=== PATIENT | male | born 1960 | race Caucasian/White ===

== ENCOUNTER 2023-08-23 06:28 | Day surgery (SDC) | payer OTHER, SELFPAY ==
[2023-08-22 09:30] VITALS: BMI 28.6
[2023-08-22 10:28] LABS: Hematocrit 47.1 % (39.0-52.0); Hemoglobin 15.9 g/dL (13.0-18.0); Mean Corp Hgb Conc. 33.8 g/dL (33.0-37.0); Mean Corpuscular Hgb 30.5 pg (27.0-31.0); Mean Corpuscular Volume 90.2 fL (80.0-94.0); Mean Platelet Volume 10.9 fL (7.4-10.4); Platelet Count 206 10^3/uL (130-400); Red Blood Cell Count 5.22 10^6/uL (4.70-6.10); Red Cell Dist. Width 12.1 % (11.5-14.5); White Blood Cell Count 5.1 10^3/uL (4.8-10.8)
[2023-08-22 10:56] LABS: Blood Urea Nitrogen 22 mg/dl (9-20); Calcium 9.5 mg/dl (8.4-10.2); Carbon Dioxide 23 mmol/L (22-30); Chloride 107 mmol/L (98-107); Estimated Creatinine Clearance 68 ml/min; Glucose 91 mg/dl (70-99); Potassium 4.5 mmol/L (3.5-5.1); Sodium 139 mmol/L (135-145); eGFR > 60.00
[2023-08-22 11:03] LABS: INR 1.04; PT 13.4 Sec (11.4-14.6)
[2023-08-22 11:04] LABS: APTT 27.5 Sec (23.4-35.0)
[2023-08-23 13:35] VITALS: BP 157/85
[2023-08-23] MEDS: NORMOSOL-R 1000 IV (13:42)
[2023-08-23 13:44] VITALS: BMI 28.6
[2023-08-23] MEDS: NEOMYCIN ENEMA 1 BOTTLE RECTAL (13:54)
[2023-08-23 16:11] VITALS: BP 125/72
[2023-08-23 16:15] VITALS: BP 128/77
[2023-08-23 16:30] VITALS: BP 132/79
[2023-08-23 16:45] VITALS: BP 120/77
== END 2023-08-23 17:00 | disposition home or self-care (01) ==
LOC: SDS 06:28
PROVIDERS: ATTENDING PHYSICIAN Specialist; FAMILY PHYSICIAN Family Medicine
DX: N41.1 Chronic prostatitis (principal); N40.0 Benign prostatic hyperplasia without lower urinary tract symptoms; R97.20 Elevated prostate specific antigen [PSA]; Z80.42 Family history of malignant neoplasm of prostate
CPT/HCPCS: 55700; 36415; 76998; 80048; 85027; 85610; 85730; 88305; 88344; 93005

== ENCOUNTER 2023-08-26 02:14 | Inpatient (IN) | payer OTHER, SELFPAY ==
[2023-08-25 22:02] VITALS: BP 149/98
[2023-08-25 22:37] VITALS: BP 151/87
[2023-08-25 22:37] LABS: % Basophils 0.3 % (0-2); % Eosinophils 0.6 % (0-6); % Immature Granulocytes 0.6 % (0-0.5); % Neutrophils 81.5 % (42.2-75.2); Absolute Eosinophils 0.1 10^3/uL (0-0.7); Absolute Immature Granulocytes 0.1 10^3/uL (0-0.05); Absolute Lymphocytes 1.5 10^3/uL (1.2-3.4); Absolute Monocytes 0.6 10^3/uL (0.1-0.6); Absolute Neutrophils 10.3 10^3/uL (1.4-6.5); Hematocrit 45.4 % (39.0-52.0); Hemoglobin 16.2 g/dL (13.0-18.0); Mean Corp Hgb Conc. 35.7 g/dL (33.0-37.0); Mean Corpuscular Volume 86.8 fL (80.0-94.0); Mean Platelet Volume 9.9 fL (7.4-10.4); Nucleated Red Blood Cells % 0 % (-); Platelet Count 191 10^3/uL (130-400); Red Blood Cell Count 5.23 10^6/uL (4.70-6.10); White Blood Cell Count 12.7 10^3/uL (4.8-10.8)
[2023-08-25 22:39] VITALS: BMI 29.8
[2023-08-25] MEDS: TYLENOL 1000 MG PO (22:42)
[2023-08-25 22:47] LABS: Lactic Acid 1.6 mmol/L (0.7-2.0)
[2023-08-25 22:51] LABS: ALT (SGPT) 25 U/L (0-50); AST (SGOT) 28 U/L (17-59); Albumin 4.7 g/dl (3.5-5.0); Alkaline Phosphatase 75 U/L (38-126); Blood Urea Nitrogen 27 mg/dl (9-20); Calcium 10.1 mg/dl (8.4-10.2); Carbon Dioxide 23 mmol/L (22-30); Chloride 105 mmol/L (98-107); Estimated Creatinine Clearance 63 ml/min; Glucose 100 mg/dl (70-99); Potassium 4.4 mmol/L (3.5-5.1); Sodium 138 mmol/L (135-145); Total Bilirubin 0.8 mg/dl (0.2-1.3); eGFR > 60.00
[2023-08-25 23:00] VITALS: BP 122/69
[2023-08-25] MEDS: MOTRIN 400 MG PO (23:37)
[2023-08-25] MEDS: NSS 1000 IV (23:38)
[2023-08-25] MEDS: ROCEPHIN 1000 MG IV (23:38)
[2023-08-26] VITALS (8 sets, daily range): BP systolic 93–129; BP diastolic 56–72; BMI 28.9
--- NOTE | 2023-08-26 00:31 | ED.GENMED ---
History of Present Illness
General
Chief Complaint: Fever
Source: patient
Exam Limitations: none
Time Seen by Provider: 08/25/23 23:25
Nursing documentation reviewed up to this point in time: agreed with
History of Present Illness
History of Present Illness:
Patient status post prostate biopsy 2 days ago secondary to elevated PSA level, presents to ED secondary to sudden onset of fever, chills, and vomiting, after he returned home from work around 8 PM. Patient spoke with on-call urologist who
recommended patient come to ED for an evaluation. Denies difficulty urination. Denies back pain. Denies diarrhea. Denies coughing. Denies sore throat. Denies headache.
Review of Systems
Review of Systems
Allergies reviewed?: Yes
All Other Systems: ROS reviewed and negative except as documented in HPI and ROS
Constitutional: Reports fever and chills
Respiratory: Reports no symptoms
ABD/GI: Reports nausea and vomiting; Denies abdominal pain or diarrhea
: Reports no symptoms
Musculoskeletal: Reports no symptoms
Skin: Reports no symptoms
Neurological: Reports no symptoms
Phy Exam
Physical Exam
Physical Exam:
Physical Exam
General: mild distress, not acutely ill. febrile. tachycardic
Head: nc/at. eomi
Neck: supple. no meningeal signs.
Heart: tachycardic, no murmur. equal radial pulses.
Lungs: no acute respiratory distress. clear bilaterally
Abdomen: normal bowel sounds. not tender.
Neuro: alert and oriented. no focal neurological deficits
Skin: no rash
Psychiatric: well kept. interactive and cooperative
Extremities: no edema. no calf tenderness.
Course
Orders/Labs/Results
Orders:
Orders
08/25/23 22:03
Electrocardiogram (*1) Urgent
Reason for Study: Tachycardia
08/25/23 22:04
EKG- Treatment ONCE
08/25/23 22:19
Urinalysis Reflex To Culture Urgent
Date Specimen was Collected: 08/25/23
Time Specimen was Collected: 22:19
08/25/23 22:27
Complete Blood Count/With Diff Urgent
Comprehensive Metabolic Panel Urgent
Lactic Acid Urgent
Blood Culture Urgent
TOYA Source: Blood/Venous
Specimen Description:
08/25/23 22:42
Acetaminophen [Tylenol] 1,000 mg .ROUTE .STK-MED ONE
Acetaminophen [Tylenol] 1,000 mg PO NOW STA
08/25/23 23:33
0.9% Sodium Chloride 1000 ml [Nss] 1,000 ml IV BOLUS
CefTRIAXone [Rocephin] 1,000 mg IV NOW STA
Ibuprofen [Motrin] 400 mg PO NOW STA
08/26/23 00:40
Urine Microscopic Reflex Cult Urgent
Urine Culture Urgent
TOYA Source: U
Specimen Description:
Date Specimen was Collected: 08/25/23
Time Specimen was Collected: 22:19
08/26/23 01:27
0.9% Sodium Chloride 500 ml [Nss] 500 ml IV BOLUS
08/26/23 02:01
Admit/Transfer Patient As Directed
Co-Sign Provider:
Level of Care: Inpatient admission
Assign to:: Telemetry
Physician / Group: htay
Diagnosis: sepsis due to UTI
Reason for Telemetry: Other
Other Reason for Telemetry: S/P prostae Biopsy 3 days ago
Date to Stop Telemetry: 08/28/23
Time to Stop Telemetry: 11:00
Reason for Hospitalization: sepsis due to UTI
S/P prostae Biopsy 3 days ago
Expected length of stay greater than two midnights?: Yes
ELOS- Estimated Length of Stay in days: 3
I certify the patient meets the requirements for IP care: Yes
08/26/23 02:04
Code Status As Directed
Resuscitation Status: Full Code
08/28/23 11:00
DC Protocol for Telemetry ONCE
Abnormal Lab Results
08/25/23 08/26/23
22:27 00:40
WBC 12.7 H 10^3/uL
(4.8-10.8)
Abs Immat Gran (auto) 0.1 H 10^3/uL
(0-0.05)
Absolute Neuts (auto) 10.3 H 10^3/uL
(1.4-6.5)
Immature Gran % 0.6 H %
(0-0.5)
Neutrophils % 81.5 H %
(42.2-75.2)
Lymphocytes % 12.0 L %
(20.5-51.1)
BUN 27 H mg/dl
(9-20)
Glucose 100 H mg/dl
(70-99)
Ur Occult Blood Reflex 2+ A
(Negative)
Urine Nitrite (Reflex) Positive A
(Negative)
Leukocyte Esterase Rfl 1+ A
(Negative)
Urine RBC 7-10 A /HPF
(0-2)
Urine WBC (Reflex) 26-30 A /HPF
(0-5)
Urine Bacteria (Reflex) Many A
(Negative)
08/25/23 22:27
08/25/23 22:27
Vital Signs
Initial and Last Documented VS:
Initial Vital Signs
Temp Pulse Resp Pulse Ox
99.5 F 129 18 98
08/25/23 22:01 08/25/23 22:01 08/25/23 22:01 08/25/23 22:01
Last Documented Vital Signs
Temp Pulse Resp BP Pulse Ox
99.8 F 101 18 116/62 96
08/26/23 00:47 08/26/23 01:45 08/26/23 01:13 08/26/23 01:00 08/26/23 01:45
MDM/Problems Addressed
MDM/Problems Addressed:
History and exam concerning for sepsis, likely secondary to UTI, with clinical concern for potential development of bacteremia. Rocephin along with IV fluids given. Patient remains normotensive with improvement in heart rate.
Urine culture and blood culture pending.
(urology) notified via [facility]
*Critical Care Note
Total Time (30-74mins, 75-104mins- exclusive of procedures): Not Applicable
ED Attending Note
-
Portions of this chart may have been created with voice recognition software.� Occasional wrong word or��sound alike� substitutions may have occurred due to the inherent limitations of voice recognition software.
Discharge Plan
Departure
Patient Disposition: Admit
Date of Disposition: 08/26/23
Time of Disposition: 01:41
Admit to: Telemetry
Presentation/result/management discussed w/ accepting MD/DO: Hospitalist
Discharge Problem:
Sepsis, Acute UTI
Interventions
Interventions:
*Risk Screen - Suicide Last Done: 08/26/23 00:58
*Neglect/Abuse Screening Last Done: 08/26/23 00:58
ED- Fall Risk Assessment Last Done: 08/25/23 23:08
*ED COVID-19 Vaccine History Last Done: 08/25/23 22:02
ED- Neurological Assessment Last Done: 08/25/23 23:08
ED-Skin Assessment Last Done: 08/25/23 23:08
[2023-08-26 00:47] LABS: Urine Albumin Negative (Neg - Trace); Urine Bilirubin Negative (Negative); Urine Character Slightly Cloudy (Clear); Urine Color Yellow; Urine Glucose Negative (Negative); Urine Ketone Negative (Negative); Urine Leukocyte 1+ (Negative); Urine Nitrite Positive (Negative); Urine Occult Blood 2+ (Negative); Urine Urobilinogen Negative (Neg - 1+)
[2023-08-26 01:27] LABS: Urine Calcium Oxalate Crystals Seen; Urine Squamous Cell 0-2 /LPF (Few)
[2023-08-26 01:28] LABS: Urine Bacteria Many (Negative); Urine White Cell 26-30 /HPF (0-5)
[2023-08-26] MEDS: NSS 500 IV (01:38)
--- NOTE | 2023-08-26 01:54 | HPS.HSE ---
Family Physician
-
Family Physician: Marty Bhakta
Chief Complaint
-
fever and chills
History of Present Illness
63M HX HLD s/p prostate biopsy 3 days ago for elevated PSA seen at ER for evalaution of fever, chills, and vomiting,
Acute fever with chills sent in by Urologist to ER
s/p prostate biopsy 3 days ago for elevated PSA
Associated with emesis
Denies difficulty urination
Denied hematuria
Denied abdominal pain
Denies back pain.
At ER
T max 101.1 Tachycardic, marginally hypotensive
Medical History
Past Medical History
Past Medical History: Reports GERD, Hypercholesterolemia and Other (erectile dysfunction )
Past Surgical History: Reports None
Social History
Tobacco: Non-smoker
Alcohol: Occasional
Drug: None
Family History
Family History: Not pertinent
Allergies / Home Medications
Allergies reflects when Allergies were last updated in [facility].
Home Medications with original date entered in [facility]
Allergy/Medication List:
Allergies
Allergy/AdvReac Type Severity Reaction Status Date / Time
No Known Allergies Allergy Verified 08/23/23 13:40
Home Medications
atorvastatin 40 mg tablet 40 mg PO DAILY 08/18/23
esomeprazole magnesium 20 mg capsule,delayed release (Nexium) 20 mg PO PRN PRN gastric reflux 08/18/23
tadalafil 5 mg tablet (Cialis) 5 mg PO DAILY 08/18/23
tirzepatide 2.5 mg/0.5 mL subcutaneous pen injector (Mounjaro) 2.5 mg SC QWEEK 08/18/23
zolpidem 10 mg tablet (Ambien) 10 mg PO HS PRN sleep 08/25/23
Review of Systems
-
Constitutional: Reports Fever (T max 101) and Chills
EENT: Reports No Symptoms
Respiratory: Reports No Symptoms
Cardiac: Reports No Symptoms
Abdomen/GI: Reports No Symptoms
: Reports No Symptoms
Musculoskeletal: Reports No Symptoms
Skin: Reports No Symptoms
Neurological: Reports No Symptoms
Endocrine: Reports No Symptoms
Hematologic/Lymphatic: Reports No Symptoms
Psych: Reports No Symptoms
Physical Exam
Vital Signs
Vital Signs
Temp Pulse Resp BP Pulse Ox
99.8 F 108 18 116/62 96
08/26/23 00:47 08/26/23 01:15 08/26/23 01:13 08/26/23 01:00 08/26/23 01:15
Physical Exam
General: Well Developed, Well Nourished, No Apparent Distress, Conversant and Fever (T max 101.1)
HEENT: NormoCephalic, Moist mucous membranes and Atraumatic
Respiratory: Clear
Cardiac: S1/S2 and Regular Rhythm; No Murmur or Rub
GI: Soft, Non Tender, Non Distended and Normal Bowel Sounds; No Organomegaly
Rectal: Deferred by Provider
Genito-urinary: Deferred by me
Musculoskeletal: No Clubbing, No Cyanosis and No Edema
Skin: No Rash
Neuro: AO x 3 and Nonfocal/grossly intact
Psych: Calm
Laboratory Results
-
08/25/23 22:27
08/25/23 22:27
Laboratory Results
Lactic Acid 1.6 mmol/L (0.7-2.0) 08/25/23 22:27
Total Bilirubin 0.8 mg/dl (0.2-1.3) 08/25/23 22:27
AST 28 U/L (17-59) 08/25/23 22:27
ALT 25 U/L (0-50) 08/25/23 22:27
Alkaline Phosphatase 75 U/L (38-126) 08/25/23 22:27
Data Reviewed
-
Lab Data: Labs Reviewed by me
Old Records: Reviewed
Impression/Plan
-
Reviewed VS: T max 101.1 Tc 99.8 Tachycardic 108 marginally hypotnsive 116/62 RR 18 POx 96
Data
WCC 12.7
BUN 27
Cr 1.2
eGFR > 60
LA 1.6
UA: POS Nitries, WCC 26-30, RBC 7-10, 1 + LE
UCx sent
BCx sent
EKG report
SINUS TACHYCARDIA
RIGHTWARD AXIS
BORDERLINE ECG
WHEN COMPARED WITH ECG OF 22-AUG-2023 09:27,
VENT. RATE HAS INCREASED BY 65 BPM
NONSPECIFIC T WAVE ABNORMALITY NOW EVIDENT IN INFERIOR LEADS
NO PRIOR hospitalist admission:
ASSESSMENT & PLAN
Sepsis due to UTI
S/P2 L NS at ER : patient margareth improved
S/P prostate biopsy 3 days ago
- f/u UCx and BCx
- cont. empiric IV CFTX
- cont. IV NS
- Uro consulted
HLD
- on Atorvastatin
HX ED on Cialis daily
DVT Px: SCD
Code: Full
IP TLM
--- NOTE | 2023-08-26 03:15 | PTCARENOTE ---
Received pt from ED. Patient Transferred from stretcher to standing scale without assistance. Pt AAO*3 with no weakness noted. VSS. Pt and Spouse oriented to room. Call gross within reach. All orders reviewed and acknowledged. Will continue to
monitor.
[2023-08-26] MEDS: NSS 1000 IV (03:31)
[2023-08-26 05:57] LABS: Hematocrit 37.4 % (39.0-52.0); Hemoglobin 13.1 g/dL (13.0-18.0); Mean Corpuscular Hgb 30.7 pg (27.0-31.0); Mean Corpuscular Volume 87.6 fL (80.0-94.0); Mean Platelet Volume 10.5 fL (7.4-10.4); Platelet Count 159 10^3/uL (130-400); Red Blood Cell Count 4.27 10^6/uL (4.70-6.10); Red Cell Dist. Width 12.2 % (11.5-14.5); White Blood Cell Count 12.3 10^3/uL (4.8-10.8)
[2023-08-26] MEDS: LIPITOR 40 MG PO (09:15)
[2023-08-26] MEDS: ZOSYN 50 IV ×3 (09:26→20:57)
--- NOTE | 2023-08-26 13:03 | W.PN.UPDATE ---
Update Note
Progress Note Update
This note serves as supplemental to history and physical dated 08/25
-switched to zosyn
-repeat blood cultures, urine cultures
-monitor fever curve, wbc
--- NOTE | 2023-08-26 13:12 | W.PN.URO.CBU ---
Today's Communication / Plan
-
per hospitalist but no changes as of now
Assessment / Plan
-
sepsis await targeted iv abs but improving in now zosyn ans previously rocephin and iv fluids if failing eeeds ct scan to t/out prostae abcess but no clinical eveidence of that now
Diagnosis
-
Date of Service: August 26, 2023
-
Patient Diagnosis:urosepsis s/p transrectalu/s prostae despite periopetove levaquin and gentamicim]=n and neomycin enema now fever 102 e coli bacteremia 48 hpours post op
Post Op Day:
Subjective
-
feeling better now fay-tigue chills yesterday
Objective
-
Vital Signs
Temp Pulse Resp BP Pulse Ox
98.1 F 71 16 129/72 97
08/26/23 11:03 08/26/23 11:03 08/26/23 11:03 08/26/23 11:03 08/26/23 11:03
Intake and Output
08/25/23 08/26/23 08/27/23
06:59 06:59 06:59
Other:
Number of approximated LARGE 1
amounts of urine
Laboratory Results
08/26/23 05:01
08/25/23 22:27
Review of Systems
-
Constitutional: Fever, Fatigue, Night Sweats and Chills
: No Symptoms
Physical Exam
-
General - well developed, well nourished, no acute distress non toxic
Chest - clear bilaterally
Abdomen - soft, non-tender, positive bowel sounds, no CVAT, no incisional pain or distention
Genitalia - normal
Rectal - normal
Skin - warm & dry with no rash
Neuro - AOx3, no motor deficits
Extremities - no clubbing, no cyanosis, no edema
Incision - clean, dry
Dressing - clean, dry, intact
Care Review
Data Reviewed
Discussed with: Hospitalist
--- NOTE | 2023-08-26 15:38 | CM ---
Alert awake oriented patient who lives with his SO Mary Alice who lives in a 2 story home with 1 step to enter and 10 steps to bed and bathroom.Called admission to add Mary Alice [phone] to contacts as per pt request. He is independent in driving and
in all activities of daily living.He was offered VN he declined need.
No VN hx / No SNF history
Pharmacy [facility]
PCP DR Bhakta
PLAN Home Declined VN
[2023-08-26] MEDS: LR 1000 IV (15:53)
[2023-08-26] MEDS: TYLENOL 650 MG PO ×2 (16:07→20:56)
[2023-08-26] MEDS: MOTRIN 400 MG PO (21:50)
[2023-08-27] MEDS: TYLENOL 650 MG PO ×4 (01:11→20:16)
[2023-08-27] MEDS: LR 1000 IV ×3 (01:11→21:22)
[2023-08-27] MEDS: ZOSYN 50 IV ×4 (03:09→21:22)
[2023-08-27 03:30] VITALS: BP 113/63
[2023-08-27 06:23] LABS: Hematocrit 34.7 % (39.0-52.0); Hemoglobin 12.3 g/dL (13.0-18.0); Mean Corp Hgb Conc. 35.4 g/dL (33.0-37.0); Mean Corpuscular Hgb 30.9 pg (27.0-31.0); Mean Corpuscular Volume 87.2 fL (80.0-94.0); Mean Platelet Volume 10.3 fL (7.4-10.4); Platelet Count 123 10^3/uL (130-400); Red Blood Cell Count 3.98 10^6/uL (4.70-6.10); Red Cell Dist. Width 12.2 % (11.5-14.5); White Blood Cell Count 6.7 10^3/uL (4.8-10.8)
[2023-08-27 06:45] LABS: ALT (SGPT) 17 U/L (0-50); AST (SGOT) 18 U/L (17-59); Albumin 2.7 g/dl (3.5-5.0); Alkaline Phosphatase 55 U/L (38-126); Blood Urea Nitrogen 16 mg/dl (9-20); Calcium 8.6 mg/dl (8.4-10.2); Carbon Dioxide 22 mmol/L (22-30); Chloride 111 mmol/L (98-107); Estimated Creatinine Clearance 83 ml/min; Glucose 102 mg/dl (70-99); Potassium 3.6 mmol/L (3.5-5.1); Sodium 137 mmol/L (135-145); Total Bilirubin 0.8 mg/dl (0.2-1.3); Total Protein 4.7 g/dl (6.3-8.2); eGFR > 60.00
[2023-08-27 07:30] VITALS: BP 101/60
[2023-08-27 08:14] VITALS: BMI 28.9
[2023-08-27] MEDS: LIPITOR 40 MG PO (09:08)
--- NOTE | 2023-08-27 09:29 | W.PN.URO.CBU ---
Today's Communication / Plan
-
Continue antibiotics
Assessment / Plan
-
63M with post prostate biopsy sepsis
E coli bacteremia
- Sepsis responding well to abx - No other intervention needed at this time
- Trend fever curve - last fever in PM 08/25
- Continue Zosyn pending final cultures
Diagnosis
-
Date of Service: August 27, 2023
-
Patient Diagnosis:
Post Op Day:
Patient Diagnosis:urosepsis s/p transrectal u/s prostate biopsy
Post Op Day:
Subjective
-
feeling better today
mild chills last night
Objective
-
Vital Signs
Temp Pulse Resp BP Pulse Ox
97.8 F 54 18 101/60 97
08/27/23 07:30 08/27/23 07:30 08/27/23 07:30 08/27/23 07:30 08/27/23 07:30
Intake and Output
08/26/23 08/27/23 08/28/23
06:59 06:59 06:59
Intake Total 1480 / 1480
Balance 1480 / 1480
Intake:
Oral fluids 480 / 480
IV fluids (Total) 950 / 950
IV piggybacks 50 / 50
Other:
Number of approximated MODERATE 3
amounts of urine
Number of approximated LARGE 1
amounts of urine
Laboratory Results
08/27/23 05:55
08/27/23 05:55
Physical Exam
-
General - well developed, well nourished, no acute distress
Chest - clear
Abdomen - soft, non-tender
Skin - warm & dry with no rash
Neuro - AOx3
[2023-08-27 11:05] VITALS: BP 118/67
--- NOTE | 2023-08-27 14:06 | W.PN.HOSP.TC ---
Today's Communication/Plan
-
repeat blood cultures
cont iv abx: anticipate narrowing within 24 hours
ID consult
Assessment / Plan
Assessment / Plan
Physical Exam
General: Well Developed, Well Nourished, No Apparent Distress, Conversant
Respiratory: Clear
Cardiac: S1/S2 and Regular Rhythm; No Murmur or Rub
GI: Soft, Non Tender, Non Distended and Normal Bowel Sounds; No Organomegaly
Rectal: Deferred by Provider
Genito-urinary: Deferred by me
Musculoskeletal: No Clubbing, No Cyanosis and No Edema
Skin: No Rash
Neuro: AO x 3 and Nonfocal/grossly intact
Psych: Calm
#Sepsis 2/2 to
#Bacteremia, E-Coli
-s/p prostate bx 3 days prior to admission - suspect translocation at that time
-IVF
-F/u repeat blood cultures
- cont. empiric IV zosyn
- cont. IV NS
- Uro consulted
-Will Consult ID tomorrow
HLD
- on Atorvastatin
HX ED on Cialis daily
DVT Px: HSQ
Code: Full
Anticipated Discharge: Within 24 hours
Subjective/Interval History
-
Date of Service: August 27, 2023
no acute events; spiked temp 102.1 yest night
Objective Data
-
Labs:
Laboratory Results
08/27/23
05:55
WBC 6.7
Hgb 12.3 L
Hct 34.7 L
Plt Count 123 L D
Sodium 137
Potassium 3.6
Chloride 111 H
Carbon Dioxide 22
BUN 16
Creatinine 0.9
Glucose 102 H
Calcium 8.6 D
Total Bilirubin 0.8
AST 18
ALT 17
Alkaline Phosphatase 55
Vital Signs:
Vital Signs
Temp Pulse Resp BP Pulse Ox
98.4 F 62 18 118/67 96
08/27/23 11:05 08/27/23 11:05 08/27/23 11:05 08/27/23 11:05 08/27/23 11:05
I&O
08/26/23 08/27/23 08/28/23
06:59 06:59 06:59
Intake Total 1480 / 1480
Balance 1480 / 1480
Review of Systems
-
History Source: Patient
All other systems: Not reviewed unless documented
Data Reviewed
-
Labs: Labs Reviewed by me
[2023-08-27 15:20] VITALS: BP 125/71
[2023-08-27] MEDS: HEPARIN 5000 UNITS SC (15:56)
[2023-08-27 19:27] VITALS: BP 142/73
[2023-08-27] MEDS: MIRALAX 17 GRAMS PO (20:16)
[2023-08-27] MEDS: AMBIEN 10 MG PO (20:16)
[2023-08-27] MEDS: SENOKOT-S 1 TABLET PO (20:16)
[2023-08-27] MEDS: PROTONIX 40 MG PO (20:22)
[2023-08-27] MEDS: HEPARIN SC (21:40)
[2023-08-27 23:28] VITALS: BP 138/75
[2023-08-28 03:25] VITALS: BP 158/86
[2023-08-28] MEDS: LR 1000 IV (04:11)
[2023-08-28] MEDS: ZOSYN 50 IV (04:12)
[2023-08-28] MEDS: TYLENOL 650 MG PO (04:12)
[2023-08-28 05:29] VITALS: BMI 29.5
[2023-08-28 05:31] LABS: Hematocrit 37.5 % (39.0-52.0); Hemoglobin 12.7 g/dL (13.0-18.0); Mean Corp Hgb Conc. 33.9 g/dL (33.0-37.0); Mean Corpuscular Hgb 30.5 pg (27.0-31.0); Mean Corpuscular Volume 89.9 fL (80.0-94.0); Mean Platelet Volume 10.9 fL (7.4-10.4); Platelet Count 126 10^3/uL (130-400); Red Blood Cell Count 4.17 10^6/uL (4.70-6.10); Red Cell Dist. Width 12.2 % (11.5-14.5); White Blood Cell Count 5.2 10^3/uL (4.8-10.8)
[2023-08-28 05:53] LABS: ALT (SGPT) 23 U/L (0-50); AST (SGOT) 24 U/L (17-59); Albumin 2.9 g/dl (3.5-5.0); Alkaline Phosphatase 61 U/L (38-126); Blood Urea Nitrogen 12 mg/dl (9-20); Calcium 8.5 mg/dl (8.4-10.2); Carbon Dioxide 22 mmol/L (22-30); Chloride 109 mmol/L (98-107); Estimated Creatinine Clearance 83 ml/min; Glucose 96 mg/dl (70-99); Potassium 3.5 mmol/L (3.5-5.1); Sodium 138 mmol/L (135-145); Total Bilirubin 0.5 mg/dl (0.2-1.3); Total Protein 4.9 g/dl (6.3-8.2); eGFR > 60.00
[2023-08-28 07:54] VITALS: BP 141/78
[2023-08-28] MEDS: LIPITOR 40 MG PO (08:22)
[2023-08-28] MEDS: HEPARIN 5000 UNITS SC (08:22)
--- NOTE | 2023-08-28 08:58 | W.PN.HOSP.TC ---
Addendum entered and electronically signed by Que Shipman MD 08/28/23 14:54:
[id number]
Original Note:
Today's Communication/Plan
-
Ceftriaxone today, Switch to bactrim 1 DS tab BID 08/24-09/06 - bactrim has good prostatic penetration
educated on monitoring glucose with bactrim/Mounjaro. Do not skip meals.
dc today
f/u pcp, urology outpatient
Assessment / Plan
Assessment / Plan
Physical Exam
General: Well Developed, Well Nourished, No Apparent Distress, Conversant
Respiratory: Clear
Cardiac: S1/S2 and Regular Rhythm; No Murmur or Rub
GI: Soft, Non Tender, Non Distended and Normal Bowel Sounds; No Organomegaly
Rectal: Deferred by Provider
Genito-urinary: Deferred by me
Musculoskeletal: No Clubbing, No Cyanosis and No Edema
Skin: No Rash
Neuro: AO x 3 and Nonfocal/grossly intact
Psych: Calm
#Sepsis 2/2 to
#Bacteremia, E-Coli
-s/p prostate bx 3 days prior to admission - suspect translocation at that time
-IVF
-F/u repeat blood cultures - ngtd
- empiric IV zosyn�ceftriaxone - DC on bactrim 1 DS tab BID 08/24-09/06 - bactrim has good prostatic penetration
- educated on monitoring glucose with bactrim/Mounjaro. Do not skip meals.
cont. IV NS
- Uro consulted - f/u outpatient
-ID consulted
HLD
- on Atorvastatin
HX ED on Cialis daily
DVT Px: HSQ
Code: Full
More than 30 minutes spent in discharge including
Final examination of the patient
Summarizing hospital stay
Instructions for continuing care to all relevant caregivers
Preparation of discharge records, prescriptions, and referral forms
Total time spent (35 in minutes):
Anticipated Discharge: Today
Subjective/Interval History
-
Date of Service: August 28, 2023
Remained afebrile for over 24 hours, cultures ngtd
Objective Data
-
Labs:
Laboratory Results
08/28/23
04:34
WBC 5.2
Hgb 12.7 L
Hct 37.5 L
Plt Count 126 L
Sodium 138
Potassium 3.5
Chloride 109 H
Carbon Dioxide 22
BUN 12
Creatinine 0.9
Glucose 96
Calcium 8.5
Total Bilirubin 0.5
AST 24
ALT 23
Alkaline Phosphatase 61
Vital Signs:
Vital Signs
Temp Pulse Resp BP Pulse Ox
100 F 66 16 141/78 97
08/28/23 07:54 08/28/23 07:54 08/28/23 07:54 08/28/23 07:54 08/28/23 08:17
I&O
08/27/23 08/28/23 08/29/23
06:59 06:59 06:59
Intake Total 1480 / 1480 1660 / 1660
Balance 1480 / 1480 1660 / 1660
Review of Systems
-
History Source: Patient
All other systems: Not reviewed unless documented
Data Reviewed
-
Labs: Labs Reviewed by me
[2023-08-28] MEDS: FLUSH (NSS) 1 FLUSH IV (10:14)
[2023-08-28] MEDS: ROCEPHIN 2000 MG IV (10:14)
[2023-08-28] MEDS: STERILE WATER FOR INJECTION 20 ML IV (10:14)
--- NOTE | 2023-08-28 11:15 | W.PN.URO.CBU ---
Today's Communication / Plan
-
Discharge with antibiotics
Assessment / Plan
-
63M with post prostate biopsy sepsis
E coli bacteremia
- Sepsis responding well to abx, fevers resolved - No other intervention needed
- Continue antibiotics for 2 week course for bacteremia
- Outpatient follow up with Dr. Lala
Diagnosis
-
Date of Service: August 28, 2023
-
Patient Diagnosis:
Post Op Day:
Patient Diagnosis:urosepsis s/p transrectal u/s prostate biopsy
Post Op Day:
Subjective
-
feeling well, no pain, no subj fevers
Objective
-
Vital Signs
Temp Pulse Resp BP Pulse Ox
100 F 66 16 141/78 97
08/28/23 07:54 08/28/23 07:54 08/28/23 07:54 08/28/23 07:54 08/28/23 08:17
Intake and Output
08/27/23 08/28/23 08/29/23
06:59 06:59 06:59
Intake Total 1480 / 1480 1660 / 1660
Balance 1480 / 1480 1660 / 1660
Intake:
Oral fluids 480 / 480 1560 / 1560
IV fluids (Total) 950 / 950
IV piggybacks 50 / 50 100 / 100
Other:
Number of approximated MODERATE 3 4
amounts of urine
Number of approximated LARGE 2
amounts of urine
Laboratory Results
08/28/23 04:34
08/28/23 04:34
Physical Exam
-
General - well developed, well nourished, no acute distress
--- NOTE | 2023-08-28 11:29 | CON.ID ---
Consultation
-
Date/Time Consultation Requested: 08/27/23 14:16
Date/Time Consultation Performed: 08/27/23 11:49
Requesting Provider: Dr Shipman
Performing Provider: Dr Malik
Reason for Consultation: e coli bacteremia
Chief Complaint / Past History
Chief Complaint
fever and chills
History of Present Illness
Mr Mitchell is a 63 year old male with past medical history notable for ED who presented here 08/25 3 days after prostate biopsy for elevated PSA. Complained of fever, chills, and vomiting. Denies: difficulty urination, hematuria, back/abdominal
pain.
Note patient is on mounjaro.
Since arrival here initially febrile to 102.1, bp has been stable, wbc initially 12.7 now normal over 24 hours, hgb 12.7, plt 126, L shift was noted on arrival, cr 0.9, lactic acid 1.6, t bili 0.5, ast 24, alt 23, alk phos 61, UA 26-30 wbc/hpf and
many bacteria, blood culture 08/24 with e coli sensi now back repeat blood cultures x2 no growth to date, qtc 412, currently on ceftriaxone, ID is consulted for assistance wiht management.
Past History
Additional Past Medical History:
GERD, Hypercholesterolemia and Other (erectile dysfunction )
Additional Past Surgical History:
as per hpi
Allergy History:
No Known Allergies Allergy (Verified 08/23/23 13:40)
Medications Reviewed: Yes
Social History
Tobacco: Non-Smoker
Alcohol: Occasional
Drug: None
Family History
Family History: Not Pertinent
Review of Systems
Review of Systems
General: Negative Fever or Chills
All systems: All other systems were reviewed and were negative
Vital Signs
Temp Pulse Resp BP Pulse Ox
100 F 66 16 141/78 97
08/28/23 07:54 08/28/23 07:54 08/28/23 07:54 08/28/23 07:54 08/28/23 08:17
Physical Exam
Physical Exam
Constitutional: No Acute Distress
Cardiovascular: Regular Rate and S1/S2; Negative Murmur or Rub
Pulmonary: Clear and Symmetric; Negative Wheezes, Rales or Rhonchi
Gastrointestinal: Soft, Non Tender, Non Distended and Normal Bowel Sounds
Skin: Warm and Dry; Negative Rash or Jaundice
Lab / Diagnostic Study Results
08/28/23 04:34
08/28/23 04:34
Abs Immat Gran (auto) 0.1 10^3/uL (0-0.05) H 08/25/23 22:27
Absolute Neuts (auto) 10.3 10^3/uL (1.4-6.5) H 08/25/23 22:27
Absolute Lymphs (auto) 1.5 10^3/uL (1.2-3.4) 08/25/23 22:27
Absolute Monos (auto) 0.6 10^3/uL (0.1-0.6) 08/25/23 22:27
Absolute Basos (auto) 0.0 10^3/uL (0-0.2) 08/25/23 22:27
Immature Gran % 0.6 % (0-0.5) H 08/25/23 22:27
Neutrophils % 81.5 % (42.2-75.2) H 08/25/23 22:27
Lymphocytes % 12.0 % (20.5-51.1) L 08/25/23 22:27
Monocytes % 5.0 % (1.7-9.3) 08/25/23 22:27
Eosinophils % 0.6 % (0-6) 08/25/23 22:27
Basophils % 0.3 % (0-2) 08/25/23 22:27
Lactic Acid 1.6 mmol/L (0.7-2.0) 08/25/23:
Ur Squamous Epith Cells 0-2 /LPF (Few) 08/26/23 00:40
Blood Culture Final 08/28/23-0858
Positive for Escherichia coli by [employer]
Nucleic Acid Methodology.
Organism 1 Escherichia coli
1. Escherichia coli
M.I.C. RX
--------- ---
Amoxicillin/Potas. Clavulanate <=8/4 S
Ampicillin <=8 S
Ampicillin/Sulbactam <=8/4 S
Cefazolin <=2 S
Ertapenem <=0.5 S
Ciprofloxacin >2 R
Gentamicin <=4 S
Levofloxacin >4 R
Meropenem <=1 S
Piperacillin/Tazobactam <=16 S
Tobramycin <=4 S
Trimethoprim/Sulfamethoxazole <=2/38 S
Microbiology Results
Micro:
08/27/23 10:02 Blood Culture - Preliminary
Blood/Venous No Growth in 24 hours- Final report to follow
08/25/23 22:27 Blood Culture - Final
Blood/Venous Escherichia coli
Gram Stain - Final
08/26/23 14:01 Blood Culture - Preliminary
Blood/Venous No Growth in 24 hours- Final report to follow
08/26/23 13:23 Blood Culture - Preliminary
Blood/Venous No Growth in 24 hours- Final report to follow
08/26/23 00:40 Urine Culture - Final
Urine No Significant Growth
Assessment / Plan
Prostatitis post Prostate Biopsy
E coli Bacteremia
Use of Mounjaro
- repeat blood cultures no growth to date
- isolate resistant to quinolones
- recommend bactrim 1 DS tab BID 08/24-09/06
- note potential hypoglycemia with combination of bactrim and mounjaro - reviewed symptoms of hypoglycemia with patient and gave instructions for management. He is not to skip meals. Bactrim remains first line therapy due to improved prostatic
penetration of the drug.
- patients last dose of mounjaro was 1.5 weeks ago, says he was planning to stop taking the medication irregardless. He likely still has some of the mounjaro in his serum given the half life of the drug. He is aware of symptoms and reports family
members with DM2 have glucometers at home.
- follow up with PCP
--- NOTE | 2023-08-28 11:54 | CM ---
CM following re: d/c planning.
Discussed with med team, pt for anticipated d/c today.
Per ID, recs for oral abx.
No d/c needs are anticipated.
Family transport home.
[2023-08-28 12:30] VITALS: BP 141/87
--- NOTE | 2023-08-28 12:42 | W.DS.TRANS ---
DC Summary - [employer]
-
Discharge Instructions:
Discharge Diagnosis/Procedures Prostatitis post Prostate Biopsy
E coli Bacteremia
Diet Low Fat,Low Cholesterol
Activity As tolerated
Instructions:
Stand-Alone Forms:
Changes to Home Medications: Yes
Discharge Medications:
DC Medications w/original date entered in [facility]
atorvastatin 40 mg tablet 40 mg PO DAILY 08/18/23
esomeprazole magnesium 20 mg capsule,delayed release (Nexium) 20 mg PO PRN PRN gastric reflux 08/18/23
tadalafil 5 mg tablet (Cialis) 5 mg PO DAILY 08/18/23
tirzepatide 2.5 mg/0.5 mL subcutaneous pen injector (Mounjaro) 2.5 mg SC QWEEK 08/18/23
zolpidem 10 mg tablet (Ambien) 10 mg PO HS PRN sleep 08/25/23
sulfamethoxazole 800 mg-trimethoprim 160 mg tablet (Bactrim DS) 1 tab PO Q12H 11 days #22 tabs 08/28/23
Home Medication Changes
sulfamethoxazole 800 mg-trimethoprim 160 mg tablet (Bactrim DS) 1 tab PO Q12H 11 days #22 tabs 08/28/23
Pending Results: No
== END 2023-08-28 13:22 | disposition home or self-care (01) | DRG 872 ==
LOC: 4 EAST ACU 02:14
PROVIDERS: ADMITTING PHYSICIAN Internal Medicine; ATTENDING PHYSICIAN Internal Medicine; CONSULT PHYSICIAN Student in an Organized Health Care Education/Training Program; EMERGENCY PHYSICIAN Emergency Medicine; FAMILY PHYSICIAN Family Medicine; OTHER PHYSICIAN Urology
DX: A41.51 Sepsis due to Escherichia coli [E. coli] (principal); N39.0 Urinary tract infection, site not specified; I95.9 Hypotension, unspecified; E78.5 Hyperlipidemia, unspecified; K21.9 Gastro-esophageal reflux disease without esophagitis; N52.9 Male erectile dysfunction, unspecified; R97.20 Elevated prostate specific antigen [PSA]; Z98.890 Other specified postprocedural states; Z79.899 Other long term (current) drug therapy
CPT/HCPCS: 80053; 81003; 81015; 83605; 83735; 85025; 85027; 87040; 87086; 87149; 87186; 87205; 93005; 96361; 96374; 99285

== ENCOUNTER → 2024-01-05 13:15 | Outpatient (REF) | payer SELFPAY | LOC: HWRAD 13:15 | PROVIDERS: ATTENDING PHYSICIAN Internal Medicine Cardiovascular Disease; FAMILY PHYSICIAN Family Medicine | DX: R94.31 Abnormal electrocardiogram [ECG] [EKG] (principal); R03.0 Elevated blood-pressure reading, without diagnosis of hypertension; E78.5 Hyperlipidemia, unspecified; R06.83 Snoring | CPT/HCPCS: 75571 ==

== ENCOUNTER 2024-03-23 06:27 | Day surgery (SDC) | payer BC, SELFPAY | END 2024-03-23 09:31 | disposition home or self-care (01) | LOC: GI 06:27 | PROVIDERS: ATTENDING PHYSICIAN Internal Medicine Gastroenterology | DX: Z12.11 Encounter for screening for malignant neoplasm of colon (principal); D12.3 Benign neoplasm of transverse colon; K57.30 Diverticulosis of large intestine without perforation or abscess without bleeding; K64.8 Other hemorrhoids; K29.50 Unspecified chronic gastritis without bleeding; K20.90 Esophagitis, unspecified without bleeding; K21.9 Gastro-esophageal reflux disease without esophagitis; K31.7 Polyp of stomach and duodenum; Z80.0 Family history of malignant neoplasm of digestive organs | CPT/HCPCS: 45380; 43239; 88305; 88342 ==